=== PATIENT | female | born 1995 | race Two or more races ===

== ENCOUNTER 2016-09-07 19:05 | Inpatient (IN) | payer MEDICAID ==
[~2016-09-07] VITALS: Ht 157.5 cm; Wt 62.6 kg
[~2016-09-07 19:05] MED LIST: ACYCLOVIR400 MG PO; IBUPROFEN600 MG ORAL; MOTRIN400 MG PO; NKM; NORCO 5-325 TA1 EACH ORAL; ONDANSETRON ODT4 MG PO; PREDNISONE20 MG PO; RANITIDINE HCL150 MG PO; RULOX SUSPENSI355 ML PO
[2016-09-07 19:30] VITALS: BP 121/79
[2016-09-07 19:52] VITALS: BP 115/83
[2016-09-07] MEDS ORDERED: LORazepam Inj 2mg/ml 1ml IV ONE (20:00)
[2016-09-07 20:02] LABS: MEAN CORPUSCULAR HEMOGLOBIN 28.8 PG (27.0-31.0); MEAN CORPUSCULAR HGB CONC 32.5 G/DL (32.0-36.0); MEAN CORPUSCULAR VOLUME 89 FL (80-99); MEAN PLATELET VOLUME 4.9 FL (6.5-10.1); PLATELET COUNT 475 K/UL (150-450); RED BLOOD COUNT 4.98 M/UL (4.20-5.40); RED CELL DISTRIBUTION WIDTH 11.9 % (11.6-14.8); WHITE BLOOD COUNT 20.5 K/UL (4.8-10.8)
[2016-09-07 20:16] LABS: TROPONIN I < 0.30 ng/mL (<=0.30)
[2016-09-07 20:19] LABS: ALANINE AMINOTRANSFERASE 13 U/L (3-33); ALBUMIN/GLOBULIN RATIO 1.2 (1.0-2.7); ANION GAP 20 (5-15); ASPARTATE AMINO TRANSFERASE 21 U/L (5-40); CALCIUM 9.2 mg/dL (8.6-10.2); CARBON DIOXIDE 22 mEQ/L (20-30); CHLORIDE 97 mEQ/L (98-107); CREATININE 0.8 mg/dL (0.5-0.9); GLOMERULAR FILTRATION RATE > 60 mL/min (>60); HEMOLYSIS 4; LIPASE 36 U/L (< 60); POTASSIUM 3.8 mEQ/L (3.4-4.9); SODIUM 139 mEQ/L (135-145); TOTAL PROTEIN 8.1 g/dL (6.6-8.7)
[2016-09-07 20:30] LABS: APPEARANCE,URINE SLIGHTLY CLOUDY; KETONES,URINE NEGATIVE (NEGATIVE); LEUKOCYTE ESTERASE ,URINE 3+ (NEGATIVE); NITRITE,URINE NEGATIVE (NEGATIVE); PH,URINE 6.5 (4.5-8.0); PROTEIN,URINE NEGATIVE (NEGATIVE); UROBILINOGEN,URINE NORMAL MG/DL (0.0-1.0)
[2016-09-07] MEDS ORDERED: Piperacillin/Tazobactam 3.375 GM in NS 110 ML IVPB ONE (20:30)
[2016-09-07] MEDS ORDERED: Vancomycin 1 GM in NS 275 ML IVPB ONE (20:30)
--- NOTE | 2016-09-07 20:30 | Emergency Room Report ---
History of Present Illness General Chief Complaint: Nausea Source: Family Member Present Illness HPI 20 YO F BIB parents with ?vomiting, ?c/o stomach pain and then became non- verbal. Family deny known medical problems. States jesse was with them all day , deny possibility of drug use. Patient not providing additional HPI at this time. She is repeatedly rubbing her stomach and staring straight ahead. Never been here before. Allergies: Coded Allergies: No Known Allergies (Unverified , 05/16/12) Patient History Past Medical History: none Past Surgical History: none Pertinent Family History: none Social History: Denies: alcohol use, drug use, smoking Last Menstrual Period: 08/24/16 Now: No : 0 Para: 0 Immunizations: UTD Reviewed Nursing Documentation: PMH: Agreed, PSxH: Agreed Nursing Documentation-PMH Past Medical History: No Stated History Review of Systems All Other Systems: limited - AMS Physical Exam Vital Signs Date Time Temp Pulse Resp B/P Pulse Ox O2 Delivery O2 Flow Rate FiO2 09/07/16 19:12 98.8 148 22 130/80 96 Room Air Sp02 EP Interpretation: reviewed, abnormal General Appearance: normal inspection, well appearing, no apparent distress, non-toxic Head: normocephalic, atraumatic Eyes: bilateral eye EOMI, bilateral eye PERRL ENT: normal ENT inspection, normal pharynx, no angioedema, TMs + canals normal Neck: normal inspection, full range of motion, supple, no bony tend Respiratory: normal inspection, lungs clear, normal breath sounds, no respiratory distress, no retraction, no accessory muscle use, no wheezing Cardiovascular #1: regular rate, rhythm, no edema, tachycardia Gastrointestinal: normal inspection, normal bowel sounds, non tender, soft, no guarding, no hernia Genitourinary: no CVA tenderness Musculoskeletal: normal inspection, back normal, normal range of motion, Emily' s Sign negative Neurologic: normal inspection, alert, responsive, bolt sorter III-XII nml as tested, motor strength/tone normal, speech normal Skin: normal inspection, normal color, no rash Procedures Critical Care Time Critical Care Time CC time 60 minutes Care for a 20 YOF with AMS DDx includes CVA, ACS, infection, metabolic abnormality, toxic ingestion, polysubstance abuse, PE Patient is altered, no obvious sign of trauma. Comprehensive physical exam completed, atraumatic. Unreliable history from patient. Labs include toxicology and chem panel, CT head , CTAP Abd/pelvis, EKG 12 lead and constant cardiac rhythm strip monitoring, IV established. Airway adequately maintained by patient upon arrival. EKG reveals sinus tachycardia Physician spent 60 minutes of direct critical care time monitoring patient's respiratory, cardiac and neurological status, reassessment, review of imaging, labs and discussion with attending hospitalist. Does not include procedures Lumbar Puncture Consent: Emergent Location: L3-L4 Anesthesia: other - Patient had PO ativan Prep: bedadine Needle Size: 1 1/2 CSF: other - Unsuccessful Post-Procedure: recumbent position, IVF Attempts: Other - 4 Complications: none Patient Tolerated: Well Medical Decision Making Diagnostic Impression: Primary Impression: Altered mental status Qualified Codes: R41.82 - Altered mental status, unspecified Additional Impressions: Leukocytosis Qualified Codes: D72.829 - Elevated white blood cell count, unspecified Sepsis Qualified Codes: A41.9 - Sepsis, unspecified organism ER Course 20 YO F with AMS, tachycardic to 160. Afebrile. Normotensive. Not tachypnic. Not hypoxic DDx includes sepsis, seizure, psedo-seizure, drug OD, infection, metabolci abnormality, PE PLAN Cardiac, O2 monitor, D-dimer, troponin, EKG, CT head, CT abd, UA, Utox EKG Diagnostic Results Rate: tachycardiac Rhythm: NSR ST Segments: no acute changes ASA given to the pt in ED: No Rhythm Strip Diag. Results EP Interpretation: yes Rate: 130 Rhythm: NSR, no PVC's, no ectopy Reevaluation Time: 21:03 Last Vital Signs Date Time Temp Pulse Resp B/P Pulse Ox O2 Delivery O2 Flow Rate FiO2 09/07/16 19:52 98.5 137 20 115/83 99 Room Air Reevaluation Impression Labs: Leuks 20k. Elevated glucose. Utox + for MJ. UA likely contaminated, no UTI. Elevated D-dimer CT head negative CTAP: normal LP unsuccessful despite multiple attempts A: Leuks- empiric Abx given for infection. 2LNS given as well. HR improved from 160-120. No obvious source in urine, CXR, Abd/pelvis. IV Rocephin added for coverage of potentially meningitis. AMS: Likely d/t MJ vs meningitis Some case reports of MJ abuse causing hemodynamic abnorm, leukocytosis Parents endorse patient just started college, possibly experimenting with drugs/MJ. Patient spiked fever, was given LA tylenol at 1020pm Admitted to Dr Phillips, tele bed at 1021pm Disposition: ADMITTED INPATIENT Condition: Critical ROBERTO RODRIGUEZ M.D. Sep 07, 2016 20:30
[2016-09-07 20:41] LABS: SQUAMOUS EPITHELIAL CELL,UR MANY /LPF (NONE/OCC); WBC,URINE 20-30 /HPF (0 - 2)
[2016-09-07 20:43] LABS: BACTERIA,URINE MODERATE /HPF
[2016-09-07] MEDS ORDERED: Zosyn 3.375gm inj ONE (21:05)
[2016-09-07] MEDS ORDERED: Vancomycin 1gm inj IVPB ONE (21:05)
[2016-09-07 21:33] LABS: BAND NEUTROPHILS % (MANUAL) 0 % (0-8); BASOPHILS % (MANUAL) 0 % (0-2); EOSINOPHILS % (MANUAL) 0 % (0-3); LYMPHOCYTES % (MANUAL) 16 % (20-45); NEUTROPHILS % (MANUAL) 81 % (45-75); PLATELET ESTIMATE INCREASED; TOTAL CELLS COUNTED 100
[2016-09-07 21:34] LABS: POLYCHROMASIA 1+
[2016-09-07 21:55] VITALS: BP 117/51
[2016-09-07] MEDS ORDERED: cefTRIAXone 2 GM in NS 110 ML IVPB ONE (22:15)
[2016-09-07] MEDS ORDERED: Solu-MEDROL 125mg Inj IVP ONE (22:30)
[2016-09-07] MEDS ORDERED: Acetaminophen 650 MG SUPP RECTAL ONE (22:30)
[2016-09-07 22:49] VITALS: BP 100/47
[2016-09-07] MEDS ORDERED: Morphine Sulfate 2mg/ml Inj IVP PRN (23:15)
[2016-09-07] MEDS ORDERED: Nitroglycerin Subl 0.4mg tab (Bottle Of 25) SL PRN (23:15)
[2016-09-07] MEDS ORDERED: DuoNeb 0.5-3(2.5)mg/3ml neb HHN PRN (23:15)
[2016-09-07] MEDS ORDERED: Miralax 17gm pkt ORAL PRN (23:15)
--- NOTE | 2016-09-07 23:43 | History and Physical ---
History of Present Illness General Date patient seen: Sep 07, 2016 Reason for Hospitalization: altered mental status tachycardia nausa and vomiting Present Illness HPI 20 yo female with no known past medical history presents to [facility] ER BIBA for AMS. Patient's family by the bedside deny any illicit substance abuse, family admits patient has been using marijuana from time to time recreationally, family also deny any past medical history, deny any recent questionable food or substance intake. No fever or chills reported leading to this incident, family states that the patient had complaints of painfull or burning while urinating a few weeks ago in the past. Patient is awake however not alert, has a blank stare on her face, not interactive or conversant. History has been obtained by speaking with family and emergency room doctor. Extensive comprehensive laboratory work up has been requested including toxicology and lumbar puncture to rule out more life threatening causes for the patients apparent change in condition. Patient has also been initiated on broad spectrum antibiotics for meningitis coverage and also possible urinary tract infection related symptoms expressed by patient according to family. Allergies: Coded Allergies: No Known Allergies (Unverified , 05/16/12) Medication History Scheduled Amoxicillin/Potassium Clav 875-125* (Augmentin 875-125 Tablet*), 1 TAB ORAL TWICE A DAY No Known Medications* (NKM - No Known Medications*), 0 ., (Reported) Patient History Limited by: medical condition History Provided By: Family Member Healthcare decision maker Resuscitation status Advanced Directive on File Review of Systems Constitutional: Reports: malaise, weakness Gastrointestinal: Reports: nausea, vomiting Neurological: Reports: other - altered mental status acute Physical Exam General Appearance: moderate distress Lines, tubes and drains: peripheral HEENT: normocephalic, atraumatic, anicteric, PERRL Neck: non-tender, normal alignment, supple Respiratory/Chest: chest wall non-tender, normal breath sounds, no respiratory distress Breasts: no masses Cardiovascular/Chest: tachycardia Abdomen: normal bowel sounds, non tender, soft, no organomegaly Genitourinary/Rectal: normal genital exam, normal rectal exam Extremities: normal range of motion, non-tender, normal inspection Skin Exam: normal pigmentation Neurologic: section chief II-XII grossly normal, disoriented, unresponsiveness Last 24 Hour Vital Signs Date Time Temp Pulse Resp B/P Pulse Ox O2 Delivery O2 Flow Rate FiO2 09/07/16 23:05 101.1 119 16 100/47 100 Room Air 09/07/16 22:49 101.1 119 16 100/47 100 Room Air 09/07/16 21:55 101.1 140 18 117/51 100 Room Air 09/07/16 19:52 98.5 137 20 115/83 99 Room Air 09/07/16 19:30 98.8 160 21 121/79 97 Room Air 09/07/16 19:12 98.8 148 22 130/80 96 Room Air Laboratory Tests Test 09/07/16 19:45 09/07/16 19:49 09/07/16 20:50 White Blood Count 20.5 K/UL (4.8-10.8) H Red Blood Count 4.98 M/UL (4.20-5.40) Hemoglobin 14.3 G/DL (12.0-16.0) Hematocrit 44.1 % (37.0-47.0) Mean Corpuscular Volume 89 FL (80-99) Mean Corpuscular Hemoglobin 28.8 PG (27.0-31.0) Mean Corpuscular Hemoglobin Concent 32.5 G/DL (32.0-36.0) Red Cell Distribution Width 11.9 % (11.6-14.8) Platelet Count 475 K/UL (150-450) H Mean Platelet Volume 4.9 FL (6.5-10.1) L Neutrophils (%) (Auto) % (45.0-75.0) Lymphocytes (%) (Auto) % (20.0-45.0) Monocytes (%) (Auto) % (1.0-10.0) Eosinophils (%) (Auto) % (0.0-3.0) Basophils (%) (Auto) % (0.0-2.0) Differential Total Cells Counted 100 Neutrophils % (Manual) 81 % (45-75) H Lymphocytes % (Manual) 16 % (20-45) L Monocytes % (Manual) 3 % (1-10) Eosinophils % (Manual) 0 % (0-3) Basophils % (Manual) 0 % (0-2) Band Neutrophils 0 % (0-8) Platelet Estimate Increased H Platelet Morphology Giant Platelets Rare Polychromasia 1+ D-Dimer 959 ng/mL (<500) H Sodium Level 139 mEQ/L (135-145) Potassium Level 3.8 mEQ/L (3.4-4.9) Chloride Level 97 mEQ/L (98-107) L Carbon Dioxide Level 22 mEQ/L (20-30) Anion Gap 20 (5-15) H Blood Urea Nitrogen 9 mg/dL (7-23) Creatinine 0.8 mg/dL (0.5-0.9) Estimat Glomerular Filtration Rate > 60 mL/min (>60) Glucose Level 181 mg/dL (74-106) H Calcium Level 9.2 mg/dL (8.6-10.2) Total Bilirubin 0.4 mg/dL (0.0-1.2) Aspartate Amino Transf (AST/SGOT) 21 U/L (5-40) Alanine Aminotransferase (ALT/SGPT) 13 U/L (3-33) Alkaline Phosphatase 88 U/L (35-104) Troponin I < 0.30 ng/mL (<=0.30) Total Protein 8.1 g/dL (6.6-8.7) Albumin 4.5 g/dL (3.5-5.2) Globulin 3.6 g/dL Albumin/Globulin Ratio 1.2 (1.0-2.7) Lipase 36 U/L (< 60) Thyroid Stimulating Hormone (TSH) 0.585 uIU/mL (0.300-4.500) Urine Color Pale yellow Urine Appearance Slightly cloudy Urine pH 6.5 (4.5-8.0) Urine Specific [place] 1.010 (1.005-1.035) Urine Protein Negative (NEGATIVE) Urine Glucose (UA) Negative (NEGATIVE) Urine Ketones Negative (NEGATIVE) Urine Occult Blood 4+ (NEGATIVE) H Urine Nitrite Negative (NEGATIVE) Urine Bilirubin Negative (NEGATIVE) Urine Urobilinogen Normal MG/DL (0.0-1.0) Urine Leukocyte Esterase 3+ (NEGATIVE) H Urine RBC 2-4 /HPF (0 - 2) H Urine WBC 20-30 /HPF (0 - 2) H Urine Squamous Epithelial Cells Many /LPF (NONE/OCC) H Urine Bacteria Moderate /HPF (NONE) H Urine HCG, Qualitative Negative Urine Opiates Screen Negative (NEGATIVE) Urine Barbiturates Screen Negative (NEGATIVE) Phencyclidine (PCP) Screen Negative (NEGATIVE) Urine Amphetamines Screen Negative (NEGATIVE) Urine Benzodiazepines Screen Negative (NEGATIVE) Urine Cocaine Screen Negative (NEGATIVE) Urine Marijuana (THC) Screen Positive (NEGATIVE) H Lactic Acid Level 1.60 mmol/L (0.66-2.22) Height (Feet): 5 Height (Inches): 2.00 Weight (Pounds): 138 Medications Current Medications Medications (Trade) Dose Ordered Sig/Gui Route PRN Reason Start Time Stop Time Status Last Admin Dose Admin Acetaminophen (Tylenol) 650 mg Q4H PRN ORAL fever 09/07/16 23:15 10/07/16 23:14 Albuterol/ Ipratropium 3 ml 3 ml EVERY 4 HOURS PRN HHN Shortness of Breath 09/07/16 23:15 09/12/16 23:14 Cefepime HCl 2 gm/ Dextrose 110 ml @ 220 mls/hr EVERY 12 HOURS IV 09/08/16 09:00 09/15/16 08:59 Heparin Sodium (Porcine) (Heparin 5000 units/ml) 5,000 units EVERY 12 HOURS SUBQ 09/08/16 09:00 10/08/16 08:59 Morphine Sulfate (Morphine Sulfate) 2 mg EVERY 4 HOURS PRN IVP Moderate Pain (Pain Scale 4-6) 09/07/16 23:15 09/14/16 23:14 Nitroglycerin (Ntg) 0.4 mg Every 5 Minutes PRN SL Prn Chest Pain 09/07/16 23:15 10/07/16 23:14 Ondansetron HCl (Zofran) 4 mg Q6H PRN IVP Nausea & Vomiting 09/07/16 23:15 10/07/16 23:14 Polyethylene Glycol (Miralax) 17 gm DAILYPRN PRN ORAL Constipation 09/07/16 23:15 10/07/16 23:14 Temazepam (Restoril) 15 mg HSPRN PRN ORAL Insomnia 09/07/16 23:15 09/14/16 23:14 Vancomycin HCl (Vanco rx to dose) 1 ea DAILY PRN MISC Per rx protocol 09/07/16 23:15 10/07/16 23:14 Vancomycin HCl/ Dextrose (Vancomycin/D5W) 275 ml @ 183.3 mls/ hr Q12H IVPB 09/08/16 09:00 09/13/16 08:59 Assessment/Plan Problem List: (1) Sepsis ICD Codes: A41.9 - Sepsis, unspecified organism SNOMED: 65957804, [id number] Qualifiers: Qualified Codes: A41.9 - Sepsis, unspecified organism (2) Altered mental status ICD Codes: R41.82 - Altered mental status, unspecified SNOMED: 816171959, [id number] Qualifiers: Qualified Codes: R41.82 - Altered mental status, unspecified Status: stable Assessment/Plan Assessment/Plan Assessment/Plan ASSESSMENT acute encephalopathy sepsis? Nausea and vomiting marijuana use PLAN OF [facility] hydration droplet precautions empiric abx cx neuro eval CXR CT head negative O2 HHN prn SANJEEV MENENDEZ Sep 07, 2016 23:43
[2016-09-08 00:10] VITALS: BP 102/45
[2016-09-08] MEDS: D5 1/2NS w/KCl 20mEq 1,000 ML IV SCH ×2 (01:44→21:11)
[2016-09-08 04:23] VITALS: BP 108/53
[2016-09-08 08:00] VITALS: BP 119/61
[2016-09-08 08:19] LABS: ALANINE AMINOTRANSFERASE 11 U/L (3-33); ALBUMIN/GLOBULIN RATIO 1.3 (1.0-2.7); ANION GAP 14 (5-15); ASPARTATE AMINO TRANSFERASE 17 U/L (5-40); CALCIUM 8.9 mg/dL (8.6-10.2); CARBON DIOXIDE 23 mEQ/L (20-30); CHLORIDE 101 mEQ/L (98-107); CREATININE 0.6 mg/dL (0.5-0.9); GLOMERULAR FILTRATION RATE > 60 mL/min (>60); HEMOLYSIS 2; SODIUM 138 mEQ/L (135-145); TOTAL PROTEIN 6.9 g/dL (6.6-8.7)
--- NOTE | 2016-09-08 08:23 | Pulmonology Progress Note ---
Assessment/Plan Assessment/Plan ASSESSMENT acute encephalopathy- resolved sepsis possible UTI ? meningitis s/p LP ( unsuccessful) vomiting marijuana use [facility] droplet precautions empiric abx fup with cx ID and neuro eval CXR negative CT A/P negative CT head negative O2 HHN prn LP unsuccessful in ER- 4 attempts LP by radiology if deemed by neuro necessary antiemetic prn urine tox screen + marijuana possibly vomiting 2 to marijuana? mother is not sure if her daughter is using it on a regular basis or first time elevated D dimer, check venous Duplex not hypoxic , no focal neuro deficits close monitoring case discussed and evaluated by supervising physician Subjective Allergies: Coded Allergies: No Known Allergies (Unverified , 05/16/12) Subjective fever resolved, still with high leukocytosis -20 mother at the bedside difficult to arouse, not answering question, just occasionally nodding, but appropriately Objective Last 24 Hour Vital Signs Date Time Temp Pulse Resp B/P Pulse Ox O2 Delivery O2 Flow Rate FiO2 09/08/16 07:18 56 16 Room Air 09/08/16 04:23 97.2 74 19 108/53 97 09/08/16 04:00 70 09/08/16 00:13 110 16 Room Air 09/08/16 00:10 97.7 94 18 102/45 94 Room Air 09/08/16 00:00 83 09/07/16 23:05 101.1 119 16 100/47 100 Room Air 09/07/16 22:49 101.1 119 16 100/47 100 Room Air 09/07/16 21:55 101.1 140 18 117/51 100 Room Air 09/07/16 19:52 98.5 137 20 115/83 99 Room Air 09/07/16 19:30 98.8 160 21 121/79 97 Room Air 09/07/16 19:12 98.8 148 22 130/80 96 Room Air Intake and Output 09/07/16 09/08/16 18:59 06:59 Intake Total 4900 ml Output Total 1800 ml Balance 3100 ml Intake IV Total 2700 ml Other 2200 ml Output Urine Total 1800 ml General Appearance: WD/WN, other - drowsy, arousable, not verbalizing answers to questions, but seem to understand since occasionally nodding appropriately HEENT: normocephalic, atraumatic, anicteric, PERRL, supple, no JVD Respiratory/Chest: chest wall non-tender, lungs clear, normal breath sounds, no respiratory distress, no accessory muscle use Cardiovascular: normal rate, regular rhythm, no JVD Abdomen: normal bowel sounds, soft, non tender Genitourinary: normal external genitalia Extremities: no edema Neurologic/Psychiatric: commercial intelligence manager II-XII grossly normal, no motor/sensory deficits, other - droswy, arousable to deep tactile stimuli, poorly but responsive, not verbal Lymphatic: no neck adenopathy Musculoskeletal: normal muscle bulk, no effusion Laboratory Tests 09/07/16 19:45: White Blood Count 20.5H, Red Blood Count 4.98, Hemoglobin 14.3, Hematocrit 44.1 , Mean Corpuscular Volume 89, Mean Corpuscular Hemoglobin 28.8, Mean Corpuscular Hemoglobin Concent 32.5, Red Cell Distribution Width 11.9, Platelet Count 475H, Mean Platelet Volume 4.9L, Neutrophils (%) (Auto) , Lymphocytes (%) (Auto) , Monocytes (%) (Auto) , Eosinophils (%) (Auto) , Basophils (%) (Auto) , Differential Total Cells Counted 100, Neutrophils % (Manual) 81H, Lymphocytes % (Manual) 16L, Monocytes % (Manual) 3, Eosinophils % (Manual) 0, Basophils % ( Manual) 0, Band Neutrophils 0, Platelet Estimate IncreasedH, Platelet Morphology , Giant Platelets Rare, Polychromasia 1+, D-Dimer 959H, Sodium Level 139, Potassium Level 3.8, Chloride Level 97L, Carbon Dioxide Level 22, Anion Gap 20H, Blood Urea Nitrogen 9, Creatinine 0.8, Estimat Glomerular Filtration Rate > 60, Glucose Level 181H, Calcium Level 9.2, Total Bilirubin 0.4, Aspartate Amino Transf (AST/SGOT) 21, Alanine Aminotransferase (ALT/SGPT) 13, Alkaline Phosphatase 88, Troponin I < 0.30, Total Protein 8.1, Albumin 4.5, Globulin 3.6, Albumin/Globulin Ratio 1.2, Lipase 36, Thyroid Stimulating Hormone (TSH) 0.585 09/07/16 19:49: Urine Color Pale yellow, Urine Appearance Slightly cloudy, Urine pH 6.5, Urine Specific [place] 1.010, Urine Protein Negative, Urine Glucose (UA) Negative, Urine Ketones Negative, Urine Occult Blood 4+H, Urine Nitrite Negative, Urine Bilirubin Negative, Urine Urobilinogen Normal, Urine Leukocyte Esterase 3+H, Urine RBC 2-4H, Urine WBC 20-30H, Urine Squamous Epithelial Cells ManyH, Urine Bacteria ModerateH, Urine HCG, Qualitative Negative, Urine Opiates Screen Negative, Urine Barbiturates Screen Negative, Phencyclidine (PCP) Screen Negative, Urine Amphetamines Screen Negative, Urine Benzodiazepines Screen Negative, Urine Cocaine Screen Negative, Urine Marijuana (THC) Screen PositiveH 09/07/16 20:50: Lactic Acid Level 1.60 09/08/16 07:00: White Blood Count [Pending], Red Blood Count [Pending], Hemoglobin [Pending], Hematocrit [Pending], Mean Corpuscular Volume [Pending], Mean Corpuscular Hemoglobin [Pending], Mean Corpuscular Hemoglobin Concent [Pending], Red Cell Distribution Width [Pending], Platelet Count [Pending], Mean Platelet Volume [ Pending], Neutrophils (%) (Auto) [Pending], Lymphocytes (%) (Auto) [Pending], Monocytes (%) (Auto) [Pending], Eosinophils (%) (Auto) [Pending], Basophils (%) (Auto) [Pending], Sodium Level [Pending], Potassium Level [Pending], Chloride Level [Pending], Carbon Dioxide Level [Pending], Blood Urea Nitrogen [Pending], Creatinine [Pending], Estimat Glomerular Filtration Rate [Pending], Glucose Level [Pending], Calcium Level [Pending], Total Bilirubin [Pending], Aspartate Amino Transf (AST/SGOT) [Pending], Alanine Aminotransferase (ALT/SGPT) [Pending] , Alkaline Phosphatase [Pending], Total Protein [Pending], Albumin [Pending], Globulin [Pending] Current Medications Medications (Trade) Dose Ordered Sig/Gui Route PRN Reason Start Time Stop Time Status Last Admin Dose Admin Acetaminophen (Tylenol) 650 mg Q4H PRN ORAL fever 09/07/16 23:15 10/07/16 23:14 Albuterol/ Ipratropium 3 ml 3 ml EVERY 4 HOURS PRN HHN Shortness of Breath 09/07/16 23:15 09/12/16 23:14 Cefepime HCl 2 gm/ Dextrose 110 ml @ 220 mls/hr EVERY 12 HOURS IV 09/08/16 09:00 09/15/16 08:59 Dextrose/ Electrolytes (D5 0.45%NS W/ KCl 20mEq) 1,000 ml @ 50 mls/hr Q20H IV 09/08/16 01:00 10/08/16 00:59 09/08/16 01:44 Heparin Sodium (Porcine) (Heparin 5000 units/ml) 5,000 units EVERY 12 HOURS SUBQ 09/08/16 09:00 10/08/16 08:59 Morphine Sulfate (Morphine Sulfate) 2 mg EVERY 4 HOURS PRN IVP Moderate Pain (Pain Scale 4-6) 09/07/16 23:15 09/14/16 23:14 Nitroglycerin (Ntg) 0.4 mg Every 5 Minutes PRN SL Prn Chest Pain 09/07/16 23:15 10/07/16 23:14 Ondansetron HCl (Zofran) 4 mg Q6H PRN IVP Nausea & Vomiting 09/07/16 23:15 10/07/16 23:14 Polyethylene Glycol (Miralax) 17 gm DAILYPRN PRN ORAL Constipation 09/07/16 23:15 10/07/16 23:14 Temazepam (Restoril) 15 mg HSPRN PRN ORAL Insomnia 09/07/16 23:15 09/14/16 23:14 Vancomycin HCl 1 ea 1 ea DAILY PRN MISC Per rx protocol 09/07/16 23:15 10/07/16 23:14 Vancomycin HCl/ Dextrose (Vancomycin/D5W) 275 ml @ 183.3 mls/ hr Q12H IVPB 09/08/16 09:00 09/13/16 08:59 Karol Martinez NP ([facility]te[facility]) Sep 08, 2016 08:23
[2016-09-08 08:46] LABS: MEAN CORPUSCULAR HEMOGLOBIN 28.9 PG (27.0-31.0); MEAN CORPUSCULAR HGB CONC 32.2 G/DL (32.0-36.0); MEAN CORPUSCULAR VOLUME 90 FL (80-99); MEAN PLATELET VOLUME 5.3 FL (6.5-10.1); PLATELET COUNT 313 K/UL (150-450); RED BLOOD COUNT 4.06 M/UL (4.20-5.40); RED CELL DISTRIBUTION WIDTH 11.7 % (11.6-14.8)
[2016-09-08] MEDS ORDERED: Cefepime HCl 2 GM in D5W 110 ML IV SCH (09:00)
--- NOTE | 2016-09-08 09:26 | Diagnostic Imaging Report ---
Indication: Abdominal pain Technique: CT of the abdomen and pelvis utilizing automated exposure control with intravenous contrast. Venous scanning performed. CT dose: Total DLP 896 mGycm; CTDI vol 17.5 mGy Comparison: None Findings: Lung bases are clear. Liver, adrenal glands, kidneys, spleen and the pancreas are unremarkable. No CT evident gallstones are seen. There is a tiny hiatal hernia. There is no appendicitis. The small bowel loops are normal in caliber. There is no free intraperitoneal air or. There is trace fluid in the pelvis. Huerta catheter is present. Uterus and adnexa are grossly unremarkable. Osseous structures demonstrate no acute abnormality. Impression: No evidence of appendicitis or mechanical bowel obstruction. Trace fluid in the pelvis may be physiologic. Clinical correlation recommended. Tiny hiatal hernia. The CT scanner at [facility] is accredited by the [employer] and the scans are performed using protocols designed to limit radiation exposure to as low as reasonably achievable to attain images of sufficient resolution adequate for diagnostic evaluation.
[2016-09-08] MEDS: Vancomycin 1 GM in D5W 275 ML IVPB SCH ×2 (10:37→21:10)
[2016-09-08] MEDS: Heparin 5000 units/ml inj SUBQ SCH ×2 (10:38→21:08)
[2016-09-08 11:59] LABS: BAND NEUTROPHILS % (MANUAL) 2 % (0-8); BASOPHILS % (MANUAL) 0 % (0-2); EOSINOPHILS % (MANUAL) 5 % (0-3); LYMPHOCYTES % (MANUAL) 11 % (20-45); NEUTROPHILS % (MANUAL) 79 % (45-75); PLATELET ESTIMATE ADEQUATE; PLATELET MORPHOLOGY NORMAL; TOTAL CELLS COUNTED 100
[2016-09-08 12:00] VITALS: BP 108/58
--- NOTE | 2016-09-08 12:05 | Neurology Progress Note ---
Objective Physical Exam Last Vital Signs Date Time Temp Pulse Resp B/P Pulse Ox O2 Delivery O2 Flow Rate FiO2 09/08/16 08:00 57 09/08/16 08:00 97.0 20 119/61 93 Room Air Laboratory Tests Test 09/07/16 19:45 09/07/16 19:49 09/07/16 20:50 09/08/16 07:00 White Blood Count 20.5 K/UL (4.8-10.8) H 20.0 K/UL (4.8-10.8) H Red Blood Count 4.98 M/UL (4.20-5.40) 4.06 M/UL (4.20-5.40) L Hemoglobin 14.3 G/DL (12.0-16.0) 11.7 G/DL (12.0-16.0) L Hematocrit 44.1 % (37.0-47.0) 36.4 % (37.0-47.0) L Mean Corpuscular Volume 89 FL (80-99) 90 FL (80-99) Mean Corpuscular Hemoglobin 28.8 PG (27.0-31.0) 28.9 PG (27.0-31.0) Mean Corpuscular Hemoglobin Concent 32.5 G/DL (32.0-36.0) 32.2 G/DL (32.0-36.0) Red Cell Distribution Width 11.9 % (11.6-14.8) 11.7 % (11.6-14.8) Platelet Count 475 K/UL (150-450) H 313 K/UL (150-450) Mean Platelet Volume 4.9 FL (6.5-10.1) L 5.3 FL (6.5-10.1) L Neutrophils (%) (Auto) % (45.0-75.0) % (45.0-75.0) Lymphocytes (%) (Auto) % (20.0-45.0) % (20.0-45.0) Monocytes (%) (Auto) % (1.0-10.0) % (1.0-10.0) Eosinophils (%) (Auto) % (0.0-3.0) % (0.0-3.0) Basophils (%) (Auto) % (0.0-2.0) % (0.0-2.0) Differential Total Cells Counted 100 100 Neutrophils % (Manual) 81 % (45-75) H 79 % (45-75) H Lymphocytes % (Manual) 16 % (20-45) L 11 % (20-45) L Monocytes % (Manual) 3 % (1-10) 3 % (1-10) Eosinophils % (Manual) 0 % (0-3) 5 % (0-3) H Basophils % (Manual) 0 % (0-2) 0 % (0-2) Band Neutrophils 0 % (0-8) 2 % (0-8) Platelet Estimate Increased H Adequate Platelet Morphology Normal Giant Platelets Rare Polychromasia 1+ D-Dimer 959 ng/mL (<500) H Sodium Level 139 mEQ/L (135-145) 138 mEQ/L (135-145) Potassium Level 3.8 mEQ/L (3.4-4.9) 4.0 mEQ/L (3.4-4.9) Chloride Level 97 mEQ/L (98-107) L 101 mEQ/L (98-107) Carbon Dioxide Level 22 mEQ/L (20-30) 23 mEQ/L (20-30) Anion Gap 20 (5-15) H 14 (5-15) Blood Urea Nitrogen 9 mg/dL (7-23) 6 mg/dL (7-23) L Creatinine 0.8 mg/dL (0.5-0.9) 0.6 mg/dL (0.5-0.9) Estimat Glomerular Filtration Rate > 60 mL/min (>60) > 60 mL/min (>60) Glucose Level 181 mg/dL (74-106) H 146 mg/dL (74-106) H Calcium Level 9.2 mg/dL (8.6-10.2) 8.9 mg/dL (8.6-10.2) Total Bilirubin 0.4 mg/dL (0.0-1.2) 0.3 mg/dL (0.0-1.2) Aspartate Amino Transf (AST/SGOT) 21 U/L (5-40) 17 U/L (5-40) Alanine Aminotransferase (ALT/SGPT) 13 U/L (3-33) 11 U/L (3-33) Alkaline Phosphatase 88 U/L (35-104) 76 U/L (35-104) Troponin I < 0.30 ng/mL (<=0.30) Total Protein 8.1 g/dL (6.6-8.7) 6.9 g/dL (6.6-8.7) Albumin 4.5 g/dL (3.5-5.2) 4.0 g/dL (3.5-5.2) Globulin 3.6 g/dL 2.9 g/dL Albumin/Globulin Ratio 1.2 (1.0-2.7) 1.3 (1.0-2.7) Lipase 36 U/L (< 60) Thyroid Stimulating Hormone (TSH) 0.585 uIU/mL (0.300-4.500) Urine Color Pale yellow Urine Appearance Slightly cloudy Urine pH 6.5 (4.5-8.0) Urine Specific [place] 1.010 (1.005-1.035) Urine Protein Negative (NEGATIVE) Urine Glucose (UA) Negative (NEGATIVE) Urine Ketones Negative (NEGATIVE) Urine Occult Blood 4+ (NEGATIVE) H Urine Nitrite Negative (NEGATIVE) Urine Bilirubin Negative (NEGATIVE) Urine Urobilinogen Normal MG/DL (0.0-1.0) Urine Leukocyte Esterase 3+ (NEGATIVE) H Urine RBC 2-4 /HPF (0 - 2) H Urine WBC 20-30 /HPF (0 - 2) H Urine Squamous Epithelial Cells Many /LPF (NONE/OCC) H Urine Bacteria Moderate /HPF (NONE) H Urine HCG, Qualitative Negative Urine Opiates Screen Negative (NEGATIVE) Urine Barbiturates Screen Negative (NEGATIVE) Phencyclidine (PCP) Screen Negative (NEGATIVE) Urine Amphetamines Screen Negative (NEGATIVE) Urine Benzodiazepines Screen Negative (NEGATIVE) Urine Cocaine Screen Negative (NEGATIVE) Urine Marijuana (THC) Screen Positive (NEGATIVE) H Lactic Acid Level 1.60 mmol/L (0.66-2.22) Red Blood Cell Morphology Normal HIV (1&2) Antibody Rapid Pending Impression/Recommendations Recommendations #[id number] SANTA TALAVERA Sep 08, 2016 12:05
[2016-09-08] MEDS: cefTRIAXone 2 GM in D5W 110 ML IVPB SCH (12:53)
[2016-09-08] MEDS: ACYCLOVIR IV SCH ×2 (14:15→22:54)
[2016-09-08] MEDS: D5W IV SCH ×2 (14:15→22:54)
[2016-09-08 16:00] VITALS: BP 107/54
--- NOTE | 2016-09-08 16:50 | Consultation ---
Consult Note Consult Note ID Dic # [id number] ERIC RN to place pt on droplet iso x 1 d KOURTNEY GUTIERRES M.D. Sep 08, 2016 16:50
[2016-09-08 20:00] VITALS: BP 105/62
--- NOTE | 2016-09-08 21:57 | Consultation ---
DATE OF CONSULTATION: 09/08/2016 NEUROLOGICAL CONSULTATION REQUESTING PHYSICIAN: Tita Phillips M.D. HISTORY OF PRESENT ILLNESS: The patient is a 20-year-old female seen in neurological consultation to evaluate new onset of unresponsiveness. According to the patient's mother during this examination, that yesterday she was doing fairly well, she had half day from her college and went with her cousin out, she came back at home 1 p.m. doing fairly well. She went back again but when she returned home at around 6 o'clock she was not well, she was nauseated, vomiting, she became progressively unresponsive, and was repeatedly rubbing her stomach and staring straight ahead. This was quite unusual. She was brought to emergency room. Vital signs on admission, blood pressure 130/80, temperature 98.8. Stat CT of the brain was negative, EKG normal sinus rhythm, sinus tachycardia. Abdomen and pelvis revealed no abnormalities. Laboratory work included CBC study with WBC 20.5, D-dimer of 959, urinalysis with 20 to 30 WBCs and many bacteria. Toxicology positive with marijuana. Chemistry panel normal TSH, normal study except elevated anion gap of 20 and blood sugar 191. Lactic acid 1.6. There was gram-negative positive blood culture coming back now. PAST MEDICAL HISTORY: Unremarkable. No major medical problems. No loss of consciousness. No evidence of alcohol or drug abuse as far as her mother knows SOCIAL HISTORY: She is a college student with . ALLERGIES: None reported. REVIEW OF SYSTEMS: Unable to obtain due the patient's status. PHYSICAL EXAMINATION: GENERAL: This is a well-developed, well-nourished, young lady, lying in bed with eyes open. Her mother at bedside. VITAL SIGNS: Temperature is 97, blood pressure 119/61, heart rate of 78, pulse oximetry 93%. HEENT: Head normocephalic. No evidence of injuries. Eyes, ears, and throat are clear. NECK: Supple. There is no meningeal signs noted. SKIN: Unremarkable. No rash. No petechia. EXTREMITIES: Peripheral pulses 1+ and symmetric MENTAL STATUS: The patient lies in bed with eyes open, was staring with occasional eye contact, during full length examination was somewhat more awake and was able to do couple of simple commands like opening and closing eyes, wiggling finger. She remained mute at all times. CRANIAL NERVES II: Pupils both responding to light and accommodation. Extraocular movement intact. No nystagmus. CRANIAL NERVES V: Normal corneal responses. CRANIAL NERVES VII: No facial asymmetry. CRANIAL NERVES VIII: Grossly normal hearing. CRANIAL NERVES IX THROUGH XII: Tongue is midline. MOTOR EXAMINATION: Able to maintain very briefly arms and legs against the gravity, tone reduced. There is no asymmetry in responses. Deep tendon reflexes 3+ bilaterally. Plantar response is flexor. No pathological responses noted. SENSORY EXAMINATION: Pin stimulation caused withdrawing of arms and legs. IMPRESSION: This is a 20-year-old female with evidence of urinary tract infection, presenting urosepsis with encephalopathy contributed by marijuana toxicity, rule out aseptic meningitis. DISCUSSION: The patient's toxicology screen was positive only for marijuana. Laboratory work with leukocytosis, gram-negatives blood cultures suggestive of sepsis, most likely due to use urinary tract infection. Cannot completely rule out aseptic meningitis although four attempt to do LP at emergency room were unsuccessful. The patient appropriately started on broad-coverage antibiotics. Infectious disease evaluations is now pending. Meanwhile the patient to continue with current treatment , IV fluids, and maintain NPO. Observe for any paroxysmal event. Thank you for allowing me to see this interesting patient in neurological consultation. Wagner Barakat M.D. DR: Yocasta JOB#: [id number] CC:
[2016-09-09] VITALS: BP 100/55
[2016-09-09] MEDS: cefTRIAXone 2 GM in D5W 110 ML IVPB SCH ×2 (00:15→11:52)
[2016-09-09 04:00] VITALS: BP 100/60
--- NOTE | 2016-09-09 04:47 | Consultation ---
DATE OF CONSULTATION: INFECTIOUS DISEASE CONSULTATION CONSULTING PHYSICIAN: Alcides Arce M.D REQUESTING PHYSICIAN: Karol [facility]arezSam[facility] CenterKeila Jain REASON FOR CONSULTATION: Evaluation of the patient for sepsis, bacteremia, possible meningitis, and antibiotic management. HISTORY OF PRESENT ILLNESS: The patient is a 20-year-old female with no significant past medical history, who was brought to the hospital due to altered level of consciousness. The patient is very lethargic and does not respond to his questions. The patient developed sudden onset of nausea, vomiting, and became very lethargic. The patient was brought to the hospital was unsuccessful. The patient's blood cultures growing Gram-negative rods and the patient admitted for further care. PAST MEDICAL HISTORY: Unremarkable. ALLERGIES: No known drug allergies. MEDICATIONS: The patient has been started on IV Rocephin, acyclovir, and vancomycin for coverage of meningitis. SOCIAL HISTORY: Unknown. FAMILY HISTORY: Noncontributory. REVIEW OF SYSTEMS: Unobtainable. PHYSICAL EXAMINATION: VITAL SIGNS: Temperature 98 degrees, blood pressure 108/55, temperature 94, and respiratory rate 20. HEENT: No pale conjunctivae. No icterus. NECK: Supple. CHEST: Unremarkable. HEART: S1 and S2. ABDOMEN: Soft. EXTREMITIES: No cyanosis at this time. NEUROLOGIC: The patient is very lethargic. SKIN: No rash. LABORATORY AND DIAGNOSTIC DATA: Human immunodeficiency virus test negative. White blood cells, 20, hemoglobin 11, and platelets 313,000. UA unremarkable, 20 to 30 white blood cells. BUN 6, creatinine 0.6. ALT, AST, and alkaline phosphatase unremarkable. Blood cultures growing Gram-negative rods. CT scan of the abdomen, no evidence of intraabdominal process. ASSESSMENT: The patient is a 20-year-old female, who came to the hospital. The patient's urine toxicology is positive for marijuana. The patient is altered. Meningitis is in differential. The patient would benefit from empiric antibiotic treatment. . The patient's CT scan of the head was ordered and was pending. I will recommend spinal tap as soon as possible. The patient's urinalysis showed pyuria and the patient has Gram-negative rods in the blood as a source of urinary tract infection. However, it is very unusual to have such altered level of consciousness in a young person due to urinary tract infection and sepsis. PLAN: 1. We will continue the patient on IV Rocephin, vancomycin, and acyclovir for now. 2. Monitor CBC. 3. Monitor BMP. 4. Monitor cultures. 5. Spinal tap when possible. 6. Neurology is following the patient. Based on the patient's clinical course and laboratories, we will do further recommendation. Thank you, . Karol Martinez, for allowing me to participate in the care of this patient. I will follow the patient with you during this hospitalization. Alcides Arce M.D. DR: CHIDI JOB#: [id number] CC:
[2016-09-09] MEDS: D5W IV SCH ×3 (05:57→22:51)
[2016-09-09] MEDS: ACYCLOVIR IV SCH ×3 (05:57→22:51)
[2016-09-09 08:00] VITALS: BP_SYST 128; BP_SYST 158; BP_DIAS 76
[2016-09-09] MEDS: Vancomycin 1 GM in D5W 275 ML IVPB SCH ×2 (08:19→21:05)
[2016-09-09] MEDS: Heparin 5000 units/ml inj SUBQ SCH ×2 (08:21→21:07)
[2016-09-09 08:59] LABS: BASOPHILS % (AUTO) 0.6 % (0.0-2.0); EOSINOPHILS % (AUTO) 0.3 % (0.0-3.0); LYMPHOCYTES % (AUTO) 22.5 % (20.0-45.0); MEAN CORPUSCULAR HEMOGLOBIN 28.4 PG (27.0-31.0); MEAN CORPUSCULAR HGB CONC 31.8 G/DL (32.0-36.0); MEAN CORPUSCULAR VOLUME 89 FL (80-99); MEAN PLATELET VOLUME 5.3 FL (6.5-10.1); MONOCYTES % (AUTO) 6.4 % (1.0-10.0); NEUTROPHILS % (AUTO) 70.2 % (45.0-75.0); PLATELET COUNT 336 K/UL (150-450); RED BLOOD COUNT 4.12 M/UL (4.20-5.40); RED CELL DISTRIBUTION WIDTH 11.8 % (11.6-14.8); WHITE BLOOD COUNT 14.5 K/UL (4.8-10.8)
[2016-09-09 09:37] LABS: ANION GAP 14 (5-15); CALCIUM 9.1 mg/dL (8.6-10.2); CARBON DIOXIDE 26 mEQ/L (20-30); CHLORIDE 99 mEQ/L (98-107); CREATININE 0.7 mg/dL (0.5-0.9); GLOMERULAR FILTRATION RATE > 60 mL/min (>60); HEMOLYSIS 4; POTASSIUM 3.2 mEQ/L (3.4-4.9); SODIUM 139 mEQ/L (135-145)
--- NOTE | 2016-09-09 11:46 | Diagnostic Imaging Report ---
Indication: Chest pain Technique: XRAY CHEST 1 V Comparison: None Findings: The cardiomediastinal silhouette is within normal limits. There is no focal consolidation, pneumothorax or pleural effusion. Osseous structures demonstrate no acute abnormality. Impression: Patient rotation limiting evaluation. No obvious acute cardiopulmonary disease. Followup recommended as indicated.
--- NOTE | 2016-09-09 11:46 | Diagnostic Imaging Report ---
Indication: Altered mental status Technique: Continuous helical CT scanning of the head was performed utilizing automated exposure control without intravenous contrast material. Axial and coronal reconstructions were obtained. Comparison: None CT dose: Total DLP 3097 mGycm; CTDI vol 70.4 mGy Findings: There is no acute intracranial hemorrhage, mass effect or cortical edema. The ventricles, cisterns and sulci are within normal limits. The posterior fossa and fourth ventricle are unremarkable. Sellar and suprasellar regions are grossly unremarkable. Visualized mastoid air cells and paranasal sinuses are unremarkable. No focal lesions of the bony calvarium or soft tissues of the scalp are seen. Impression: No evidence of acute intracranial hemorrhage, mass effect or cortical edema. MRI may be obtained for more sensitive evaluation as clinically indicated. The CT scanner at [facility] is accredited by the [employer] and the scans are performed using protocols designed to limit radiation exposure to as low as reasonably achievable to attain images of sufficient resolution adequate for diagnostic evaluation.
[2016-09-09 12:00] VITALS: BP 100/59
--- NOTE | 2016-09-09 14:40 | Pulmonology Progress Note ---
Assessment/Plan Assessment/Plan ASSESSMENT acute encephalopathy- resolved sepsis with bacteremia ( Bacilli0 possible UTI r/o aseptic meningitis s/p LP ( unsuccessful) vomiting [facility] precautions empiric abx fup with cx , blood cx 08/22 + Bacilli ID and neuro eval appreciated CXR negative CT A/P negative CT head negative O2 HHN prn LP unsuccessful in ER- 4 attempts LP by radiology if deemed by neuro necessary antiemetic prn urine tox screen + marijuana possibly vomiting 2 to marijuana? per apteitn it was the first time she tried marijuana, was a cookie with marijuana ( likely concentrated) elevated D dimer, venous Duplex acute toxic encephalopathy likely 2 to drug OD as to sepsis and bacteremia source not clear, ID follows, continue abx,. HIV test negative transfer to [place] case discussed and evaluated by supervising physician Subjective Allergies: Coded Allergies: No Known Allergies (Unverified , 05/16/12) Subjective fever resolved, still with high leukocytosis trending down -14.5 mental status down to normal family at the bedside Objective Last 24 Hour Vital Signs Date Time Temp Pulse Resp B/P Pulse Ox O2 Delivery O2 Flow Rate FiO2 09/09/16 12:00 97.9 61 17 100/59 98 Room Air 63 09/09/16 09:38 66 16 Room Air 21 09/09/16 08:00 78 09/09/16 08:00 98.2 72 17 128/76 98 Room Air 67 09/09/16 04:00 97.0 69 19 100/60 97 Room Air 69 09/09/16 04:00 54 09/09/16 00:00 86 09/09/16 00:00 97.9 71 19 100/55 97 Room Air 71 09/08/16 20:18 108 18 Room Air 21 09/08/16 20:00 96.8 99 21 105/62 97 Room Air 09/08/16 20:00 93 09/08/16 16:00 97.9 99 19 107/54 96 Room Air 09/08/16 16:00 103 Intake and Output 09/08/16 09/09/16 18:59 06:59 Intake Total 1636.6 ml 1521.6 ml Output Total 400 ml Balance 1636.6 ml 1121.6 ml Intake Oral 120 ml 500 ml IV Total 1516.6 ml 1021.6 ml Output Urine Total 400 ml Objective General Appearance: WD/WN, awake,alert, responsive HEENT: normocephalic, atraumatic, anicteric, PERRL, supple, no JVD Respiratory/Chest: chest wall non-tender, lungs clear, normal breath sounds, no respiratory distress, no accessory muscle use Cardiovascular: normal rate, regular rhythm, no JVD Abdomen: normal bowel sounds, soft, non tender Genitourinary: normal external genitalia Extremities: no edema 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 Anthracis Complete Laboratory Tests 09/09/16 08:30: White Blood Count 14.5H, Red Blood Count 4.12L, Hemoglobin 11.7L, Hematocrit 36.8L, Mean Corpuscular Volume 89, Mean Corpuscular Hemoglobin 28.4, Mean Corpuscular Hemoglobin Concent 31.8L, Red Cell Distribution Width 11.8, Platelet Count 336, Mean Platelet Volume 5.3L, Neutrophils (%) (Auto) 70.2, Lymphocytes (%) (Auto) 22.5, Monocytes (%) (Auto) 6.4, Eosinophils (%) (Auto) 0.3, Basophils (%) (Auto) 0.6, Sodium Level 139, Potassium Level 3.2L, Chloride Level 99, Carbon Dioxide Level 26, Anion Gap 14, Blood Urea Nitrogen 7, Creatinine 0.7, Estimat Glomerular Filtration Rate > 60, Glucose Level 117H, Calcium Level 9.1, Vancomycin Level Trough 34.5H, Anti-Nuclear Antibody Screen [ Pending] Current Medications Medications (Trade) Dose Ordered Sig/Gui Route PRN Reason Start Time Stop Time Status Last Admin Dose Admin Acetaminophen (Tylenol) 650 mg Q4H PRN ORAL fever 09/07/16 23:15 10/07/16 23:14 Acyclovir/Dextrose (Zovirax/D5W) 110 ml @ 110 mls/hr Q8HR IV 09/08/16 14:00 10/08/16 13:59 09/09/16 05:57 Albuterol/ Ipratropium 3 ml 3 ml EVERY 4 HOURS PRN HHN Shortness of Breath 09/07/16 23:15 09/12/16 23:14 Ceftriaxone Sodium 2 gm/ Dextrose 110 ml @ 220 mls/hr Q12H IVPB 09/08/16 12:30 09/15/16 12:29 09/09/16 11:52 Dextrose/ Electrolytes 1,000 ml @ 50 mls/hr Q20H IV 09/08/16 01:00 10/08/16 00:59 09/08/16 21:11 Heparin Sodium (Porcine) (Heparin 5000 units/ml) 5,000 units EVERY 12 HOURS SUBQ 09/08/16 09:00 10/08/16 08:59 09/09/16 08:21 Morphine Sulfate (Morphine Sulfate) 2 mg EVERY 4 HOURS PRN IVP Moderate Pain (Pain Scale 4-6) 09/07/16 23:15 09/14/16 23:14 Nitroglycerin (Ntg) 0.4 mg Every 5 Minutes PRN SL Prn Chest Pain 09/07/16 23:15 10/07/16 23:14 Ondansetron HCl (Zofran) 4 mg Q6H PRN IVP Nausea & Vomiting 09/07/16 23:15 10/07/16 23:14 Polyethylene Glycol (Miralax) 17 gm DAILYPRN PRN ORAL Constipation 09/07/16 23:15 10/07/16 23:14 Temazepam (Restoril) 15 mg HSPRN PRN ORAL Insomnia 09/07/16 23:15 09/14/16 23:14 Vancomycin HCl 1 ea 1 ea DAILY PRN MISC Per rx protocol 09/07/16 23:15 10/07/16 23:14 Vancomycin HCl/ Dextrose (Vancomycin/D5W) 275 ml @ 183.3 mls/ hr Q12H IVPB 09/08/16 09:00 09/13/16 08:59 09/09/16 08:19 Karol Martinez NP (Vanchtein) Sep 09, 2016 14:40
[2016-09-09 16:00] VITALS: BP 103/45
[2016-09-09] MEDS: D5 1/2NS w/KCl 20mEq 1,000 ML IV SCH (17:51)
[2016-09-09 20:00] VITALS: BP 95/56
[2016-09-10] VITALS: BP 104/49
[2016-09-10] MEDS: D5 1/2NS w/KCl 20mEq 1,000 ML IV SCH ×2 (02:00→21:10)
[2016-09-10] MEDS ORDERED: Nitroglycerin Subl 0.4mg tab (Bottle Of 25) SL PRN (02:00)
[2016-09-10 04:00] VITALS: BP 100/43
[2016-09-10] MEDS ORDERED: Morphine Sulfate 2mg/ml Inj IVP PRN (05:00)
[2016-09-10] MEDS ORDERED: DuoNeb 0.5-3(2.5)mg/3ml neb HHN PRN (05:00)
[2016-09-10] MEDS ORDERED: Vancomycin 750mg Inj IVPB ONE (05:29)
[2016-09-10] MEDS: Vancomycin 750mg/D5W 275ml IVPB SCH ×4 (05:32→13:00)
[2016-09-10] MEDS: D5W IV SCH ×3 (07:05→21:13)
[2016-09-10] MEDS: ACYCLOVIR IV SCH ×3 (07:05→21:13)
--- NOTE | 2016-09-10 07:35 | Infectious Diseases Prog Note ---
Assessment/Plan Assessment/Plan A: The patient is a 20-year-old female with probable UTI UCx not sent yes pyuria, no dysuria Bacteremia Bacillus ( contaminant ) ? meningitis, no Hx of BOWLING CT: head Neg ALOC Leukocytosis improved Fever improved HIV neg ? marijuana overdose PLAN: patient on IV Rocephin, vancomycin, and acyclovir d# 3 Monitor CBC. Monitor BMP. Monitor cultures. Spinal tap by IR . Neurology is following . Subjective Allergies: Coded Allergies: No Known Allergies (Unverified , 05/16/12) Subjective no BOWLING Objective Vital Signs Last 24 Hour Vital Signs Date Time Temp Pulse Resp B/P Pulse Ox O2 Delivery O2 Flow Rate FiO2 09/10/16 04:00 97.2 54 20 100/43 98 Room Air 09/10/16 00:00 97.2 70 19 104/49 99 Room Air 09/09/16 20:00 97.5 67 19 95/56 97 Room Air 09/09/16 19:52 70 16 Room Air 21 09/09/16 16:00 97.9 67 20 103/45 99 Room Air 09/09/16 12:00 97.9 61 17 100/59 98 Room Air 63 09/09/16 12:00 59 09/09/16 09:38 66 16 Room Air 21 09/09/16 08:00 78 09/09/16 08:00 98.2 72 17 128/76 98 Room Air 67 Height (Feet): 5 Height (Inches): 2.00 Weight (Pounds): 138 Respiratory/Chest: lungs clear Cardiovascular: regular rhythm Abdomen: non distended Microbiology Date/Time Source Procedure Growth Status 09/07/16 20:50 Blood Blood Culture - Preliminary NO GROWTH AFTER 48 HOURS Resulted 09/07/16 20:35 Blood Blood Culture - Final Bacillus Sp Not B. Anthracis Complete 09/09/16 08:00 Sputum Gram Stain Pending Resulted 09/09/16 08:00 Sputum Sputum Culture - Preliminary NO GROWTH Resulted Laboratory Tests Test 09/09/16 08:30 09/09/16 20:10 White Blood Count 14.5 K/UL (4.8-10.8) H Red Blood Count 4.12 M/UL (4.20-5.40) L Hemoglobin 11.7 G/DL (12.0-16.0) L Hematocrit 36.8 % (37.0-47.0) L Mean Corpuscular Volume 89 FL (80-99) Mean Corpuscular Hemoglobin 28.4 PG (27.0-31.0) Mean Corpuscular Hemoglobin Concent 31.8 G/DL (32.0-36.0) L Red Cell Distribution Width 11.8 % (11.6-14.8) Platelet Count 336 K/UL (150-450) Mean Platelet Volume 5.3 FL (6.5-10.1) L Neutrophils (%) (Auto) 70.2 % (45.0-75.0) Lymphocytes (%) (Auto) 22.5 % (20.0-45.0) Monocytes (%) (Auto) 6.4 % (1.0-10.0) Eosinophils (%) (Auto) 0.3 % (0.0-3.0) Basophils (%) (Auto) 0.6 % (0.0-2.0) Sodium Level 139 mEQ/L (135-145) Potassium Level 3.2 mEQ/L (3.4-4.9) L Chloride Level 99 mEQ/L (98-107) Carbon Dioxide Level 26 mEQ/L (20-30) Anion Gap 14 (5-15) Blood Urea Nitrogen 7 mg/dL (7-23) Creatinine 0.7 mg/dL (0.5-0.9) Estimat Glomerular Filtration Rate > 60 mL/min (>60) Glucose Level 117 mg/dL (74-106) H Calcium Level 9.1 mg/dL (8.6-10.2) Vancomycin Level Trough 34.5 ug/mL (5.0-12.0) H 8.8 ug/mL (5.0-12.0) Anti-Nuclear Antibody Screen Pending Current Medications Medications (Trade) Dose Ordered Sig/Gui Route PRN Reason Start Time Stop Time Status Last Admin Dose Admin Acetaminophen (Tylenol) 650 mg Q4H PRN ORAL fever 09/10/16 03:15 10/10/16 03:14 Acyclovir 900 mg/ Dextrose 110 ml @ 110 mls/hr Q8HR IV 09/10/16 06:00 10/10/16 05:59 09/10/16 07:05 Albuterol/ Ipratropium (DuoNeb 0.5-3(2.5)mg/3ml) 3 ml Q4H PRN HHN Shortness of Breath 09/10/16 05:00 09/15/16 04:59 Ceftriaxone Sodium 2 gm/ Dextrose 110 ml @ 220 mls/hr Q12H IVPB 09/10/16 12:30 09/17/16 12:29 Dextrose/ Electrolytes (D5 0.45%NS W/ KCl 20mEq) 1,000 ml @ 50 mls/hr Q20H IV 09/10/16 02:00 10/10/16 01:59 Heparin Sodium (Porcine) (Heparin 5000 units/ml) 5,000 units EVERY 12 HOURS SUBQ 09/10/16 09:00 10/10/16 08:59 Morphine Sulfate (Morphine Sulfate) 2 mg Q4H PRN IVP Moderate Pain (Pain Scale 4-6) 09/10/16 05:00 09/17/16 04:59 Nitroglycerin (Ntg) 0.4 mg Every 5 Minutes PRN SL Prn Chest Pain 09/10/16 02:00 10/10/16 01:59 Ondansetron HCl (Zofran) 4 mg Q6H PRN IVP Nausea & Vomiting 09/10/16 05:15 10/10/16 05:14 Polyethylene Glycol (Miralax) 17 gm DAILYPRN PRN ORAL Constipation 09/10/16 23:15 10/10/16 23:14 Temazepam (Restoril) 15 mg HSPRN PRN ORAL Insomnia 09/10/16 23:15 09/17/16 23:14 Vancomycin HCl 1 ea 1 ea DAILY PRN MISC Per rx protocol 09/10/16 09:00 10/10/16 08:59 Vancomycin HCl/ Dextrose (Vancomycin/D5W) 275 ml @ 183.708 mls/hr Q8H IVPB 09/10/16 05:00 09/15/16 04:59 09/10/16 05:32 KOURTNEY GUTIERRES M.D. Sep 10, 2016 07:35
[2016-09-10 07:56] LABS: BASOPHILS % (AUTO) 0.8 % (0.0-2.0); EOSINOPHILS % (AUTO) 1.1 % (0.0-3.0); LYMPHOCYTES % (AUTO) 28.5 % (20.0-45.0); MEAN CORPUSCULAR HEMOGLOBIN 28.9 PG (27.0-31.0); MEAN CORPUSCULAR HGB CONC 32.2 G/DL (32.0-36.0); MEAN CORPUSCULAR VOLUME 90 FL (80-99); MEAN PLATELET VOLUME 4.8 FL (6.5-10.1); MONOCYTES % (AUTO) 8.6 % (1.0-10.0); NEUTROPHILS % (AUTO) 60.9 % (45.0-75.0); PLATELET COUNT 355 K/UL (150-450); RED BLOOD COUNT 4.36 M/UL (4.20-5.40); RED CELL DISTRIBUTION WIDTH 11.7 % (11.6-14.8); WHITE BLOOD COUNT 14.3 K/UL (4.8-10.8)
[2016-09-10 08:00] VITALS: BP 99/57
[2016-09-10 08:14] LABS: ANION GAP 15 (5-15); CALCIUM 9.2 mg/dL (8.6-10.2); CARBON DIOXIDE 26 mEQ/L (20-30); CHLORIDE 99 mEQ/L (98-107); CREATININE 0.7 mg/dL (0.5-0.9); GLOMERULAR FILTRATION RATE > 60 mL/min (>60); HEMOLYSIS 4; POTASSIUM 3.6 mEQ/L (3.4-4.9); SODIUM 140 mEQ/L (135-145)
[2016-09-10] MEDS: Heparin 5000 units/ml inj SUBQ SCH ×2 (08:20→21:18)
[2016-09-10] MEDS ORDERED: Vancomycin 1 GM in D5W 275 ML IVPB SCH (09:00)
[2016-09-10 12:00] VITALS: BP 100/60
[2016-09-10] MEDS: cefTRIAXone 2 GM in D5W 110 ML IVPB SCH (12:00)
[2016-09-10 13:14] LABS: GLUCOSE,CSF 57 mg/dL (50-80)
[2016-09-10 13:38] LABS: APPEARANCE,CSF CLEAR; COLOR,CSF COLORLESS
[2016-09-10 13:40] LABS: WHITE BLOOD CELL,CSF 0 /CU MM (0-5)
[2016-09-10 13:42] LABS: CSF COMMENT NO DIFFERENTIAL DONE
[2016-09-10 16:00] VITALS: BP 111/60
--- NOTE | 2016-09-10 18:27 | Pulmonology Progress Note ---
Assessment/Plan Problems: (1) Sepsis (2) Altered mental status Assessment/Plan lp negative BC contaminated probably UTI with overdose of THc dc home in am if ok with ID Subjective ROS Limited/Unobtainable: No Interval Events: doing better, lp was negative Allergies: Coded Allergies: No Known Allergies (Unverified , 05/16/12) Objective Last 24 Hour Vital Signs Date Time Temp Pulse Resp B/P Pulse Ox O2 Delivery O2 Flow Rate FiO2 09/10/16 16:00 98.6 90 20 111/60 98 Room Air 98 09/10/16 12:00 98.0 72 18 100/60 98 Room Air 74 09/10/16 08:00 97.6 70 18 99/57 98 Room Air 76 09/10/16 07:55 76 16 Room Air 21 09/10/16 04:00 97.2 54 20 100/43 98 Room Air 09/10/16 00:00 97.2 70 19 104/49 99 Room Air 09/09/16 20:00 97.5 67 19 95/56 97 Room Air 09/09/16 19:52 70 16 Room Air 21 Intake and Output 09/09/16 09/10/16 19:00 07:00 Intake Total 1766.63 ml 960.708 ml Output Total 1700 ml Balance 66.63 ml 960.708 ml Intake Oral 620 ml 260 ml IV Total 1146.63 ml 700.708 ml Output Urine Total 1700 ml # Voids 3 General Appearance: WD/WN HEENT: normocephalic Respiratory/Chest: chest wall non-tender, lungs clear Cardiovascular: normal peripheral pulses, normal rate Abdomen: normal bowel sounds, no organomegaly Extremities: no cyanosis Skin: no rash Lymphatic: no neck adenopathy Microbiology Date/Time Source Procedure Growth Status 09/07/16 20:50 Blood Blood Culture - Preliminary Resulted 09/07/16 20:35 Blood Blood Culture - Final Bacillus Sp Not B. Anthracis Complete 09/09/16 08:00 Sputum Gram Stain - Final Resulted 09/09/16 08:00 Sputum Sputum Culture - Preliminary NO GROWTH Resulted 09/07/16 19:49 Urine,Clean Catch Urine Culture - Preliminary Resulted Laboratory Tests 09/09/16 20:10: Vancomycin Level Trough 8.8 09/10/16 07:25: White Blood Count 14.3H, Red Blood Count 4.36, Hemoglobin 12.6, Hematocrit 39.1 , Mean Corpuscular Volume 90, Mean Corpuscular Hemoglobin 28.9, Mean Corpuscular Hemoglobin Concent 32.2, Red Cell Distribution Width 11.7, Platelet Count 355, Mean Platelet Volume 4.8L, Neutrophils (%) (Auto) 60.9, Lymphocytes ( %) (Auto) 28.5, Monocytes (%) (Auto) 8.6, Eosinophils (%) (Auto) 1.1, Basophils (%) (Auto) 0.8, CSF Herpes Simplex II DNA (PCR) [Pending], Sodium Level 140, Potassium Level 3.6, Chloride Level 99, Carbon Dioxide Level 26, Anion Gap 15, Blood Urea Nitrogen 7, Creatinine 0.7, Estimat Glomerular Filtration Rate > 60, Glucose Level 109H, Calcium Level 9.2, Herpes Simplex Virus I DNA (PCR) [Pending ] 09/10/16 11:45: CSF Appearance Clear, CSF Color Colorless, CSF WBC 0, CSF RBC 1, CSF Neutrophils % , CSF Lymphocytes % , CSF Monocytes % , CSF Crenated Cells 0, CSF Comment No differential done, CSF Glucose 57, CSF Total Protein 34 Current Medications Medications (Trade) Dose Ordered Sig/Gui Route PRN Reason Start Time Stop Time Status Last Admin Dose Admin Acetaminophen (Tylenol) 650 mg Q4H PRN ORAL fever 09/10/16 03:15 10/10/16 03:14 Acyclovir/Dextrose (Zovirax/D5W) 110 ml @ 110 mls/hr Q8H IV 09/10/16 21:00 10/10/16 20:59 Albuterol/ Ipratropium (DuoNeb 0.5-3(2.5)mg/3ml) 3 ml Q4H PRN HHN Shortness of Breath 09/10/16 05:00 09/15/16 04:59 Ceftriaxone Sodium 2 gm/ Dextrose 110 ml @ 220 mls/hr Q12H IVPB 09/10/16 12:30 09/17/16 12:29 09/10/16 12:00 Dextrose/ Electrolytes (D5 0.45%NS W/ KCl 20mEq) 1,000 ml @ 50 mls/hr Q20H IV 09/10/16 02:00 10/10/16 01:59 Heparin Sodium (Porcine) (Heparin 5000 units/ml) 5,000 units EVERY 12 HOURS SUBQ 09/10/16 09:00 10/10/16 08:59 09/10/16 08:20 Morphine Sulfate (Morphine Sulfate) 2 mg Q4H PRN IVP Moderate Pain (Pain Scale 4-6) 09/10/16 05:00 09/17/16 04:59 Nitroglycerin (Ntg) 0.4 mg Every 5 Minutes PRN SL Prn Chest Pain 09/10/16 02:00 10/10/16 01:59 Ondansetron HCl (Zofran) 4 mg Q6H PRN IVP Nausea & Vomiting 09/10/16 05:15 10/10/16 05:14 Polyethylene Glycol (Miralax) 17 gm DAILYPRN PRN ORAL Constipation 09/10/16 23:15 10/10/16 23:14 Temazepam (Restoril) 15 mg HSPRN PRN ORAL Insomnia 09/10/16 23:15 09/17/16 23:14 Vancomycin HCl 750 mg/Dextrose 275 ml @ 183.708 mls/hr Q8HR IVPB 09/10/16 22:00 09/15/16 21:59 Vancomycin HCl 1 ea 1 ea DAILY PRN MISC Per rx protocol 09/10/16 09:00 10/10/16 08:59 SANJEEV MENENDEZ Sep 10, 2016 18:27
--- NOTE | 2016-09-10 19:08 | Cardiology Report ---
APPROVED REPORT EKG Measurement Heart [id number] Sinus tachycardia Rightward axis Nonspecific ST abnormality Abnormal ECG
[2016-09-10 20:00] VITALS: BP 103/56
[2016-09-10] MEDS ORDERED: Vancomycin 750mg/D5W 275ml IVPB SCH ×2 (22:00)
[2016-09-10] MEDS ORDERED: Metoclopramide 10mg/2ml Inj IVP PRN (23:15)
[2016-09-10] MEDS ORDERED: Miralax 17gm pkt ORAL PRN (23:15)
[2016-09-11] VITALS: BP 83/50
[2016-09-11] MEDS: cefTRIAXone 2 GM in D5W 110 ML IVPB SCH ×2 (01:30→11:52)
[2016-09-11 01:41] VITALS: BP 106/56
[2016-09-11 04:00] VITALS: BP 100/54
[2016-09-11] MEDS: D5W IV SCH (04:32)
[2016-09-11] MEDS: ACYCLOVIR IV SCH (04:32)
[2016-09-11 05:13] LABS: BASOPHILS % (AUTO) 0.8 % (0.0-2.0); EOSINOPHILS % (AUTO) 0.5 % (0.0-3.0); LYMPHOCYTES % (AUTO) 21.7 % (20.0-45.0); MEAN CORPUSCULAR HEMOGLOBIN 29.1 PG (27.0-31.0); MEAN CORPUSCULAR HGB CONC 32.9 G/DL (32.0-36.0); MEAN CORPUSCULAR VOLUME 89 FL (80-99); MEAN PLATELET VOLUME 4.8 FL (6.5-10.1); MONOCYTES % (AUTO) 7.8 % (1.0-10.0); NEUTROPHILS % (AUTO) 69.2 % (45.0-75.0); PLATELET COUNT 335 K/UL (150-450); RED BLOOD COUNT 4.34 M/UL (4.20-5.40); RED CELL DISTRIBUTION WIDTH 11.6 % (11.6-14.8); WHITE BLOOD COUNT 15.7 K/UL (4.8-10.8)
[2016-09-11 05:32] LABS: MAGNESIUM 1.9 mg/dL (1.7-2.5); PHOSPHORUS 4.6 mg/dL (2.5-4.8)
[2016-09-11 05:35] LABS: ALANINE AMINOTRANSFERASE 11 U/L (3-33); ALBUMIN/GLOBULIN RATIO 1.1 (1.0-2.7); ANION GAP 13 (5-15); ASPARTATE AMINO TRANSFERASE 15 U/L (5-40); CARBON DIOXIDE 24 mEQ/L (20-30); CHLORIDE 101 mEQ/L (98-107); CREATININE 0.9 mg/dL (0.5-0.9); GLOMERULAR FILTRATION RATE > 60 mL/min (>60); HEMOLYSIS 2; POTASSIUM 3.7 mEQ/L (3.4-4.9); SODIUM 138 mEQ/L (135-145); TOTAL PROTEIN 6.3 g/dL (6.6-8.7)
[2016-09-11 08:00] VITALS: BP 91/54
[2016-09-11] MEDS: Heparin 5000 units/ml inj SUBQ SCH (08:51)
[2016-09-11] MEDS ORDERED: Vancomycin 500mg/D5W 110ml IVPB SCH ×2 (10:00)
--- NOTE | 2016-09-11 10:04 | Infectious Diseases Prog Note ---
Assessment/Plan Assessment/Plan ASSESSMENT: 20-year-old female with: probable UTI - UCx 10-20K lactobacillus Bacteremia Bacillus, GVR 2/4, m/l contaminant Leukocytosis - improved Fever - resolved Acute encephalopathy, doubt meningitis ? marijuana overdose - resolved, no meningismus, CSF benign, Cx NGTD, HSV PCR pending CT: head Neg Negative HIV NKDA Full Code PLAN: ok to DC on PO augmentin x6 days from ID standpoint - Rx on chart, reconciled. Will continue IV Rocephin, vancomycin, and acyclovir d# 4 while still inpt f/u final cultures Monitor CBC, temperatures Monitor BMP. Subjective Allergies: Coded Allergies: No Known Allergies (Unverified , 05/16/12) Subjective remains afebrile. persistent leukocytosis. c/o tired, but otherwise back to normal self CSF noted Objective Vital Signs Last 24 Hour Vital Signs Date Time Temp Pulse Resp B/P Pulse Ox O2 Delivery O2 Flow Rate FiO2 09/11/16 08:00 97.3 95 16 91/54 96 09/11/16 04:00 97.7 79 18 100/54 96 Room Air 09/11/16 01:41 73 106/56 09/11/16 00:00 96.1 98 18 83/50 94 Room Air 09/10/16 20:00 96.3 88 16 103/56 96 Room Air 09/10/16 19:30 88 20 Room Air 21 09/10/16 16:00 98.6 90 20 111/60 98 Room Air 98 09/10/16 12:00 98.0 72 18 100/60 98 Room Air 74 Height (Feet): 5 Height (Inches): 2.00 Weight (Pounds): 138 General Appearance: no acute distress HEENT: other - neck supple Cardiovascular: normal rate, regular rhythm Abdomen: normal bowel sounds, soft, non tender, non distended Extremities: no edema Skin: no rash Neurologic/Psychiatric: alert, oriented x 3 Microbiology Date/Time Source Procedure Growth Status 09/10/16 11:45 Cerebral Spinal Fluid Gram Stain Pending Resulted 09/10/16 11:45 Cerebral Spinal Fluid CSF Culture - Preliminary NO GROWTH Resulted 09/09/16 08:00 Sputum Gram Stain - Final Resulted 09/09/16 08:00 Sputum Sputum Culture - Preliminary NORMAL UPPER RESPIRATORY JOSH AT 24 ... Resulted Laboratory Tests Test 09/10/16 11:45 09/11/16 04:45 CSF Appearance Clear CSF Color Colorless CSF WBC 0 /CU MM (0-5) CSF RBC 1 /CU MM CSF Neutrophils % % CSF Lymphocytes % % CSF Monocytes % % CSF Crenated Cells 0 % CSF Comment No differential CSF Glucose 57 mg/dL (50-80) CSF Total Protein 34 mg/dL (15-45) White Blood Count 15.7 K/UL (4.8-10.8) H Red Blood Count 4.34 M/UL (4.20-5.40) Hemoglobin 12.6 G/DL (12.0-16.0) Hematocrit 38.4 % (37.0-47.0) Mean Corpuscular Volume 89 FL (80-99) Mean Corpuscular Hemoglobin 29.1 PG (27.0-31.0) Mean Corpuscular Hemoglobin Concent 32.9 G/DL (32.0-36.0) Red Cell Distribution Width 11.6 % (11.6-14.8) Platelet Count 335 K/UL (150-450) Mean Platelet Volume 4.8 FL (6.5-10.1) L Neutrophils (%) (Auto) 69.2 % (45.0-75.0) Lymphocytes (%) (Auto) 21.7 % (20.0-45.0) Monocytes (%) (Auto) 7.8 % (1.0-10.0) Eosinophils (%) (Auto) 0.5 % (0.0-3.0) Basophils (%) (Auto) 0.8 % (0.0-2.0) Sodium Level 138 mEQ/L (135-145) Potassium Level 3.7 mEQ/L (3.4-4.9) Chloride Level 101 mEQ/L (98-107) Carbon Dioxide Level 24 mEQ/L (20-30) Anion Gap 13 (5-15) Blood Urea Nitrogen 5 mg/dL (7-23) L Creatinine 0.9 mg/dL (0.5-0.9) Estimat Glomerular Filtration Rate > 60 mL/min (>60) Glucose Level 105 mg/dL (74-106) Calcium Level 9.0 mg/dL (8.6-10.2) Phosphorus Level 4.6 mg/dL (2.5-4.8) Magnesium Level 1.9 mg/dL (1.7-2.5) Total Bilirubin 0.4 mg/dL (0.0-1.2) Aspartate Amino Transf (AST/SGOT) 15 U/L (5-40) Alanine Aminotransferase (ALT/SGPT) 11 U/L (3-33) Alkaline Phosphatase 67 U/L (35-104) Total Protein 6.3 g/dL (6.6-8.7) L Albumin 3.4 g/dL (3.5-5.2) L Globulin 2.9 g/dL Albumin/Globulin Ratio 1.1 (1.0-2.7) Vancomycin Level Trough 20.7 ug/mL (5.0-12.0) H Current Medications Medications (Trade) Dose Ordered Sig/Gui Route PRN Reason Start Time Stop Time Status Last Admin Dose Admin Acetaminophen (Tylenol) 650 mg Q4H PRN ORAL fever 09/10/16 03:15 10/10/16 03:14 Acyclovir/Dextrose (Zovirax/D5W) 110 ml @ 110 mls/hr Q8H IV 09/10/16 21:00 10/10/16 20:59 09/11/16 04:32 Albuterol/ Ipratropium (DuoNeb 0.5-3(2.5)mg/3ml) 3 ml Q4H PRN HHN Shortness of Breath 09/10/16 05:00 09/15/16 04:59 Ceftriaxone Sodium 2 gm/ Dextrose 110 ml @ 220 mls/hr Q12H IVPB 09/10/16 12:30 09/17/16 12:29 09/11/16 01:30 Dextrose/ Electrolytes (D5 0.45%NS W/ KCl 20mEq) 1,000 ml @ 50 mls/hr Q20H IV 09/10/16 02:00 10/10/16 01:59 09/10/16 21:10 Heparin Sodium (Porcine) (Heparin 5000 units/ml) 5,000 units EVERY 12 HOURS SUBQ 09/10/16 09:00 10/10/16 08:59 09/11/16 08:51 Metoclopramide HCl (Reglan) 10 mg Q4HR PRN IVP Nausea & Vomiting 09/10/16 23:15 10/10/16 23:14 09/10/16 23:42 Morphine Sulfate (Morphine Sulfate) 2 mg Q4H PRN IVP Moderate Pain (Pain Scale 4-6) 09/10/16 05:00 09/17/16 04:59 Nitroglycerin (Ntg) 0.4 mg Every 5 Minutes PRN SL Prn Chest Pain 09/10/16 02:00 10/10/16 01:59 Ondansetron HCl (Zofran) 4 mg Q6H PRN IVP Nausea & Vomiting 09/10/16 05:15 10/10/16 05:14 09/10/16 22:52 Polyethylene Glycol (Miralax) 17 gm DAILYPRN PRN ORAL Constipation 09/10/16 23:15 10/10/16 23:14 Promethazine HCl 25 mg 25 mg Q6HR PRN IV Nausea & Vomiting 09/10/16 23:30 10/10/16 23:29 Temazepam (Restoril) 15 mg HSPRN PRN ORAL Insomnia 09/10/16 23:15 09/17/16 23:14 Vancomycin HCl 1 ea 1 ea DAILY PRN MISC Per rx protocol 09/10/16 09:00 10/10/16 08:59 Vancomycin HCl/ Dextrose (Vancomycin/D5W) 110 ml @ 110 mls/hr Q12H IVPB 09/11/16 10:00 09/16/16 09:59 FRANCISCA LIVINGSTON Sep 11, 2016 10:04
[2016-09-11] MEDS ORDERED: AUGMENTIN 875-1 EAC1 ORAL (10:09)
[2016-09-11 12:00] VITALS: BP 112/51
[2016-09-11] MEDS ORDERED: D5W 275ml ONE (13:40)
[2016-09-11] MEDS ORDERED: Tubing IV Secondary IV ONE ×2 (13:40)
--- NOTE | 2016-09-12 13:28 | Discharge Summary ---
Discharge Summary Hospital Course Date of Admission Sep 07, 2016 at 20:40 Date of Discharge Sep 11, 2016 at 13:41 Admitting Diagnosis AMS HPI Zuly Cervantes is a 20 year old female who was admitted on Sep 07, 2016 at 20:40 for Altered Mental Status Procedures s/p lumbar puncture Hospital Course dc summary #[id number] Discharge Medications New Medications: Amoxicillin/Potassium Clav 875-125* (Augmentin 875-125 Tablet*) 1 Each Tablet 1 TAB ORAL TWICE A DAY for 6 Days, #12 TAB Discharge Condition Upon Discharge: improving, stable Discharge Disposition Patient was discharged to Home (01) Discharge Diagnoses: Juan ([facility]),Karol GONZALEZ Sep 12, 2016 13:28
--- NOTE | 2016-09-13 12:36 | Diagnostic Imaging Report ---
APPROVED REPORT CPT Code: 37553 Present Symptoms Lower Extremity Pain: Bilateral Shortness of breath BILATERAL: Imaging reveals a patent deep venous system bilaterally. There is no evidence of thrombus within the femoral, popliteal or tibial segments. The greater saphenous veins are also within normal limits. Doppler indicates normal spontaneous flow within these segments.
--- NOTE | 2016-09-13 15:47 | Discharge Summary 2 SIG ---
DATE OF ADMISSION: 09/07/2016 DATE OF DISCHARGE: 09/11/2016 REASON FOR ADMISSION: 20-year-old female was brought in by the parents with vomiting, complaining of abdominal pain. Then, she became nonverbal. Family denied any medical problems. According to the parents, the patient was with them the whole day. They deny any possibility of drug use. The patient was unable to provide any additional information at that time. She was staring straight ahead and repeatedly rubbing her stomach. Workup in the emergency room revealed . white blood count of 20. The patient was on the room air, pulse oximetry was stable. Vital signs overall were stable, afebrile. CT of the abdomen and pelvis done at that time revealed clear lungs, unremarkable liver, adrenal glands, kidneys, spleen, and pancreas. No CT evidence of the gallstones. No appendicitis. Small bowel loops normal in caliber. No free intraperitoneal air. Trace fluid in the pelvis. Uterus and adnexa are grossly unremarkable. Overall no evidence of appendicitis or mechanical bowel obstruction. Lumbar puncture was attempted x4 in the emergency department by emergency room doctor and was unsuccessful. EKG revealed sinus tachycardia. Due to the concern of possible meningitis, the patient started on antibiotics, two liters of IV fluids given, heart rate improved, no obvious source of infection. IV Rocephin was added for coverage of potential meningitis. Urine drug screen was positive for marijuana. The patient transferred to telemetry floor for further management. ADMITTING DIAGNOSES: 1. Acute toxic encephalopathy. 2. Sepsis. 3. Possible urinary tract infection. 4. Rule out aseptic meningitis. 5. Vomiting, subsided. 6. Marijuana use. HOSPITAL COURSE: The patient admitted to telemetry floor. The patient was empirically on droplet precautions. IV fluids provided. The patient started on empiric antibiotic for coverage of meningitis. ID consult was requested. Chest x-ray was negative. CT of the abdomen and pelvis was negative. CT of the head was negative. Pulse oximetry on room air was stable. Since lumbar puncture was unsuccessful in emergency room, lumbar puncture was performed by Interventional Radiology, and cerebrospinal fluid analysis was unremarkable. Per infectious disease doctor, leukocytosis was trending down, likely urinary tract infection, unlikely meningitis since no meningismus signs and cerebrospinal fluid being benign. Mental status back to baseline. Noted elevated D-dimer. Venous duplex bilateral lower extremities was negative. HIV test was negative. Neurologist seen and followed the patient. Neurologist also suggested that the patient presented with likely evidence of urinary tract infection, urosepsis, encephalopathy contributed by marijuana toxicity. However he was in agreement to rule out aseptic meningitis. A spinal tap was done by Interventional Radiology. Cerebral spinal fluid essentially negative. HCV is still pending. Positive blood culture of Bacilli diphtheroids according to ID - likely contaminant. Cerebral spinal fluid culture was negative. Sputum culture was negative. The patient mental status is back to baseline. Leukocytosis trending down, afebrile. Electrolytes stable. LFTs stable. The patient counseled on abstinence from the street drugs. ID cleared for discharge on Augmentin for total of six days. DISCHARGE DIAGNOSES: 1. Sepsis. 2. Urinary tract infection. 3. Acute encephalopathy likely secondary to marijuana overdose(unlikely meningitis). 4. Status post lumbar puncture. 5. Marijuana use. 6. Vomiting, resolved. DISCHARGE MEDICATIONS: See medication reconciliation list. DISCHARGE INSTRUCTIONS: The patient discharged home. FOLLOWUP: Follow up with primary medical doctor, reinforced abstinence from the street drugs. Tita Phillips M.D. I have been assigned to dictate discharge summary on this account and I was not involved in the patient's management. Karol CasarezNyu Langone Orthopedic HospitalCristobal N.PHugo DR: Eliot JOB#: [id number] CC: HERNAN
--- NOTE | 2016-09-18 22:37 | Electroencephalogram ---
DATE OF PROCEDURE: 09/08/2016 ELECTROENCEPHALOGRAPHY REPORT REQUESTING PHYSICIAN: Tita Phillips M.D. HISTORY: This is a 20-year-old female with new onset of verbal unresponsiveness. EEG was requested to assess cortical dysfunction, type of cortical dysfunction and to rule out nonconvulsive seizure activities. During the recording, the patient described as being stuporous, lethargic, obtunded, and unresponsive to verbal comment. COMMENT: Fur Trimming Machine Operator note indicated upon completion of study, the patient become more awake and was talking for few minutes. EEG was done using 18 electrodes placed scalp to scalp, scalp to ear montages according to [employer] System. Throughout the recording, background activity consists of a low voltage somewhat irregular, mixture of 6 to 7 cycles per second with 7 to 8 cycles per second bilaterally EMG artifacts were obscuring the recording. When pinched or painful stimulation applied, background become more faster around 8 cycles per second bilaterally. With painful stimulation, the patient displayed no evidence of grimacing. She remained with eyes open and blank stare. No paroxysmal event. No spike or wave activities noted. IMPRESSION: Abnormal EEG in presence of mild to moderate diffuse slowing. Comment - above abnormality is a nonspecific finding indicate a presence of toxic or metabolic derangement, absence of paroxysmal event on a single recording does not rule out seizure disorder. Wagner Barakat M.D. DR: [place] JOB#: [id number] CC:
--- NOTE | 2016-09-20 12:59 | Diagnostic Imaging Report ---
Indication: altered mental status Findings: After the indications, procedure, risks, complications, and alternatives of the procedure were explained, written informed consent was obtained. The lower back was prepped and draped in standard sterile fashion.1% lidocaine was used to anesthetize the skin. Using fluoroscopic guidance, 22-gauge spinal needle was advanced into the spinal canal at the level of L4. 10 cc of clear CSF was removed. There were no complications. Patient tolerated the procedure well. Opening pressure was 11 cm water. Impression: Successful lumbar puncture.
== END 2016-09-11 13:41 | disposition home or self-care (01) | DRG 720 ==
LOC: EMR 19:55 → 2E 20:40 → EDBEDREQ 21:39 → 4E 09-10 01:34
PROC: 009U3ZX Drainage of Spinal Canal, Percutaneous Approach, Diagnostic (ICD-10-PCS; principal; 2016-09-10)
PROC: B01BZZZ Fluoroscopy of Spinal Cord (ICD-10-PCS; 2016-09-10)
DX: A41.9 Sepsis, unspecified organism (principal); G92 Toxic encephalopathy; N39.0 Urinary tract infection, site not specified; F12.90 Cannabis use, unspecified, uncomplicated; T40.7X1A Poisoning by cannabis (derivatives), accidental (unintentional), initial encounter; Y92.89 Other specified places as the place of occurrence of the external cause
CPT/HCPCS: 36415; 62270; 70450; 71010; 74177; 80048; 80053; 80202; 80300; 81003; 81025; 82945; 83605; 83690; 83735; 84100; 84157; 84443; 84484; 85007; 85025; 85379; 85651; 86039; 86703; 87040; 87070; 87086; 87205; 89051; 93005; 93970; 94664; 95819; J2405; J2765

== ENCOUNTER 2017-02-20 11:55 | Emergency (ER) | payer MEDICAID ==
[~2017-02-20] VITALS: Ht 160 cm; Wt 54.4 kg
[~2017-02-20 11:55] MED LIST changes: +AUGMENTIN 875-1 EAC1 ORAL
[2017-02-20 12:08] VITALS: BP 120/80
--- NOTE | 2017-02-20 12:24 | Emergency Room Report ---
History of Present Illness General Chief Complaint: Upper Extremity Injury Source: Patient (Amelia New) Present Illness HPI 21 YO Female presents to the ED c/o right lateral wrist pain, swelling and bruising after striking arm on a wall while running yesterday. pt. reports currently 5/10 in severity pain, exacerbated with movement of the wrist or palpation. pt. denies previous injury to affected extremity. Denies numbness tingling or loss of sensation or gross motor movements of the extremities, incontinence of bowel or bladder. Denies CP, Palpitations, LOC, AMS, dizziness, Changes in Vision, Sensation, paresthesias, or a sudden severe headache. (Amelia New) Allergies: Coded Allergies: No Known Allergies (Unverified , 05/16/12) Patient History Past Medical History: see triage record Past Surgical History: none Pertinent Family History: none Now: No - 02/13/17 Reviewed Nursing Documentation: PMH: Agreed, PSxH: Agreed (Amelia New) Nursing Documentation-PMH Past Medical History: No Stated History (Amelia New) Review of Systems All Other Systems: negative except mentioned in HPI (Amelia New) Physical Exam Vital Signs Date Time Temp Pulse Resp B/P Pulse Ox O2 Delivery O2 Flow Rate FiO2 02/20/17 11:59 97.9 78 16 120/80 98 Room Air Sp02 EP Interpretation: reviewed, normal General Appearance: no apparent distress, alert, GCS 15, non-toxic Head: normocephalic, atraumatic Eyes: bilateral eye PERRL, bilateral eye normal inspection ENT: hearing grossly normal, normal pharynx, no angioedema, normal voice Neck: full range of motion, supple/symm/no masses Respiratory: lungs clear, normal breath sounds, speaking full sentences Cardiovascular #1: regular rate, rhythm, no edema, normal capillary refill Cardiovascular #2: 2+ radial (R) Musculoskeletal: back normal, gait/station normal, normal range of motion, swelling, tender - ttp to dorsum/lateral right wrist with swelling and bruising noted, FROM with pain, NVI Neurologic: alert, oriented x3, responsive, motor strength/tone normal, sensory intact, speech normal Psychiatric: judgement/insight normal, memory normal, mood/affect normal Skin: normal color, no rash, warm/dry, well hydrated, hematoma - right lateral wrist (Amelia New) Medical Decision Making PA Attestation Dr. Douglas is my supervising Physician whom patient management has been discussed with. (Amelia New) Diagnostic Impression: Primary Impression: Contusion of wrist, right ER Course Pt. presents to the ED c/o right lateral wrist pain, swelling and bruising after striking arm on a wall while running. Ddx considered but are not limited to Fracture, dislocation, contusion, Sprain/ Strain/Spasm. Vital signs: are WNL, pt. is afebrile H&PE are most consistent with musculoskeletal injury will perform imaging to r/ o fractures/dislocations. ORDERS: - X-ray Right wrist 3 views - negative for fx, Dislocation, or significant soft tissue injury, per preliminary read in ED by Dr. Douglas - interpretation is scribed by PA. ED INTERVENTIONS: - Motrin PO -Christopher wrap applied to the right wrist by systems testing laboratory technician. Pt. remains neurovascularly intact. DISCHARGE: At this time pt. is stable for d/c to home. Will provide printed patient care instructions, and any necessary prescriptions. Care plan and follow up instructions have been discussed with the patient prior to discharge. (Amelia New) Other X-Ray Diagnostic Results Other X-Ray Diagnostic Results : Interpreting ER Provider: Scribe documentation reviewed by me and is accurate. (Mingo Douglas M.D.) Last Vital Signs Date Time Temp Pulse Resp B/P Pulse Ox O2 Delivery O2 Flow Rate FiO2 02/20/17 12:08 97.8 78 16 120/80 98 Room Air (Amelia New) Disposition: HOME, SELF-CARE Condition: Stable Scripts Ibuprofen* (MOTRIN*) 600 Mg Tablet 600 MG ORAL THREE TIMES A DAY, #20 TAB 0 Refills Prov: Amelia New 02/20/17 Patient Instructions: CONTUSION, Upper Extremity Additional Instructions: Take medications as directed. Follow up with PCP in 3-5 days Return sooner to ED if new symptoms occur, or current symptoms become worse. - Please note that this Emergency Department Report was dictated using [id number] technology software, occasionally this can lead to erroneous entry secondary to interpretation by the dictation equipment. Amelia New Feb 20, 2017 12:24 Mingo Douglas M.D. Feb 22, 2017 03:25
[2017-02-20] MEDS ORDERED: IBUPROFEN600 MG ORAL (12:43)
[2017-02-20 12:49] VITALS: BP 120/80
--- NOTE | 2017-02-20 13:32 | Diagnostic Imaging Report ---
Indication: Pain Findings: 3 views of the right wrist were obtained. No acute fractures, malalignment, erosions or periostitis are identified. Bone mineralization is within normal limits. Soft tissues are unremarkable. Impression: Negative examination of the right wrist.
== END 2017-02-20 13:00 | disposition home or self-care (01) ==
LOC: EMR 12:31
DX: S60.211A Contusion of right wrist, initial encounter (principal); W22.09XA Striking against other stationary object, initial encounter; Y93.02 Activity, running; Y92.9 Unspecified place or not applicable
CPT/HCPCS: 29260; 99283

== ENCOUNTER 2017-03-25 23:30 | Emergency (ER) | payer MEDICAID ==
[~2017-03-25] VITALS: Ht 157.5 cm; Wt 63.5 kg
[2017-03-25 23:39] VITALS: BP 99/65
[2017-03-26 03:00] VITALS: BP 101/67
[2017-03-26 03:55] VITALS: BP 101/67
--- NOTE | 2017-03-26 04:53 | Emergency Room Report ---
History of Present Illness General Chief Complaint: Alcohol Intoxication Source: Patient Present Illness HPI 21YOF BIBEMS from home after 7 tequilla shots Denies other drugs Denies SI, HI, AVH HPI otherwise limited d/t intoxication Allergies: Coded Allergies: No Known Allergies (Unverified , 03/25/17) Patient History Past Medical History: none Past Surgical History: none Pertinent Family History: none Social History: Denies: alcohol use, drug use, smoking Last Menstrual Period: unk Now: No Immunizations: UTD Reviewed Nursing Documentation: PMH: Agreed, PSxH: Agreed Nursing Documentation-PMH Past Medical History: No Stated History Review of Systems All Other Systems: negative except mentioned in HPI Physical Exam Vital Signs Date Time Temp Pulse Resp B/P Pulse Ox O2 Delivery O2 Flow Rate FiO2 03/25/17 23:34 98.8 101 18 121/76 98 Room Air Sp02 EP Interpretation: reviewed, normal General Appearance: normal inspection, well appearing, no apparent distress, alert, other - +AOB Head: normocephalic, atraumatic Eyes: bilateral eye EOMI, bilateral eye PERRL ENT: normal ENT inspection, hearing grossly normal, normal voice Neck: normal inspection, full range of motion, supple, no bony tend Respiratory: normal inspection, lungs clear, normal breath sounds, no respiratory distress, no retraction, no wheezing Cardiovascular #1: regular rate, rhythm, no edema Gastrointestinal: normal inspection, normal bowel sounds, non tender, soft, no guarding, no hernia Genitourinary: no CVA tenderness Neurologic: normal inspection, alert, responsive, community aide III-XII nml as tested, motor strength/tone normal, speech normal Psychiatric: normal inspection, judgement/insight normal, mood/affect normal Skin: normal inspection, normal color, no rash Lymphatic: normal inspection Medical Decision Making Diagnostic Impression: Primary Impression: Acute alcoholic intoxication Qualified Codes: F10.929 - Alcohol use, unspecified with intoxication, unspecified ER Course Acute ETOH intoxication VSS. Afebrile Atraumatic Observed in the ED until improved/sober DC with family to home Last Vital Signs Date Time Temp Pulse Resp B/P Pulse Ox O2 Delivery O2 Flow Rate FiO2 03/25/17 23:39 98.6 86 18 99/65 96 Room Air Status: improved Disposition: HOME, SELF-CARE Condition: Improved Referrals: [facility],REFERRING (PCP) Patient Instructions: Alcohol Intoxication, [id number] ROBERTO RODRIGUEZ M.D. Mar 26, 2017 04:53
== END 2017-03-26 03:55 | disposition home or self-care (01) ==
LOC: EDUNIT# 23:30 → EDBD 23:30 → EMR 23:48
DX: F10.129 Alcohol abuse with intoxication, unspecified (principal)
CPT/HCPCS: 99284